=== PATIENT | female | born 1990 ===

== ENCOUNTER 2018-03-17 08:23 | Emergency (ER) | payer MEDICAID ==
[2018-03-17 08:40] VITALS: BP 95/61; PULSE 63; TEMP 98.6; O2SAT 99
--- NOTE | 2018-03-17 10:50 | C.PDOC ---
History Of Present Illness 27 year old female presents to the ED for evaluation, stating she felt a sensation of something crawling in her left ear upon waking up this morning. Patient denies fever, chills or bleeding. Time Seen by Provider: 03/17/18 08:32 Chief Complaint (Nursing): ENT Problem History Per: Patient History/Exam Limitations: None Onset/Duration Of Symptoms: Hrs Current Symptoms Are (Timing): Still Present Past Medical History Reviewed: Historical Data, Nursing Documentation, Vital Signs Vital Signs: Last Vital Signs Temp 98.6 F 03/17/18 08:30 Pulse 63 03/17/18 08:30 Resp 20 03/17/18 08:30 BP 95/61 L 03/17/18 08:30 Pulse Ox 99 03/17/18 08:30 - Medical History PMH: No Chronic Diseases Surgical History: No Surg Hx Family History: States: Unknown Family Hx - Social History Hx Alcohol Use: No Hx Substance Use: No - Immunization History Hx Tetanus Toxoid Vaccination: Yes Hx Influenza Vaccination: Yes Hx Pneumococcal Vaccination: No Review Of Systems Constitutional: Negative for: Fever, Chills ENT: Positive for: Other (crawling sensation in left ear ) Physical Exam - Physical Exam Appears: Non-toxic, No Acute Distress Skin: Normal Color, Warm, Dry, No Rash Head: Atraumatic, Normacephalic Eye(s): bilateral: Normal Inspection, PERRL, EOMI Ear(s): Left: Other (insect visualized, TM normal), Right: Normal Oral Mucosa: Moist Throat: No Erythema, No Exudate Neck: Normal ROM, Supple Neurological/Psych: Oriented x3, Normal Speech, Normal Cognition ED Course And Treatment O2 Sat by Pulse Oximetry: 99 (on RA) Pulse Ox Interpretation: Normal Disposition - Disposition Referrals: Kerwin De Leon MD [Staff Provider] - Disposition: HOME/ ROUTINE Disposition Time: 10:50 Condition: GOOD Additional Instructions: Follow up with the ENT as needed. Instructions: Removing Objects Stuck in the Ear Forms: [facility] (Bulgarian) - Clinical Impression Clinical Impression: Ear foreign body - PA / TUMBLER TENDER / Resident Statement MD/DO has reviewed & agrees with the documentation as recorded. - Scribe Statement The provider has reviewed the documentation as recorded by the Scribe (Zaria Tee) All medical record entries made by the Scribe were at my direction and personally dictated by me. I have reviewed the chart and agree that the record accurately reflects my personal performance of the history, physical exam, medical decision making, and the department course for this patient. I have also personally directed, reviewed, and agree with the discharge instructions and disposition. Procedures - FB Removal Ear Left Foreign Body Location: Ear Canal Left Foreign Body Suspected: Insect If Insect Suspected: Ear Canal Instilled w/ (viscous lidocaine) TM Intact Pre-Procedure: Yes Foreign Body Removed: Yes Foreign Body Removal Technique: Irrigation TM Intact Post Procedure: Yes Patient Tolorated Procedure: Well, No Complications Complications: None Additional comments: Lidocaine 2% placed in left ear canal. Ear canal was irrigated using warm water. Insect was successfully removed. Patient tolerated the procedure well without any complications. TM intact post-procedure with no bleeding or erythema.
[2018-03-17 11:00] VITALS: RESP 16
== END 2018-03-17 10:59 | disposition home or self-care (01) ==
LOC: C.ER 08:23
DX: T16.2XXA Foreign body in left ear, initial encounter (principal); X58.XXXA Exposure to other specified factors, initial encounter